=== PATIENT | female | born 1955 | race African-American/Black ===

== ENCOUNTER 2018-03-27 19:21 | Emergency (ER) | payer MEDICARE, OTHER ==
[2018-03-27] MEDS: HYDROCODONE/APAP (5/325) TAB PO (21:13)
== END 2018-03-27 23:22 | disposition home or self-care (01) ==
LOC: FTE 19:21
DX: S96.912A Strain of unspecified muscle and tendon at ankle and foot level, left foot, initial encounter (principal); S93.402A Sprain of unspecified ligament of left ankle, initial encounter; I10 Essential (primary) hypertension; J45.909 Unspecified asthma, uncomplicated; F17.210 Nicotine dependence, cigarettes, uncomplicated; R40.2412 Glasgow coma scale score 13-15, at arrival to emergency department; X58.XXXA Exposure to other specified factors, initial encounter; Y92.34 Swimming pool (public) as the place of occurrence of the external cause; Z79.82 Long term (current) use of aspirin
CPT/HCPCS: 73610; 73630-LT; 99283-25

== ENCOUNTER 2019-03-19 14:45 | Emergency (ER) | payer MEDICARE, OTHER ==
[2019-03-19] MEDS: KETOROLAC 30 MG INJ IM (15:10)
== END 2019-03-19 17:44 | disposition home or self-care (01) ==
LOC: FTE 17:44
DX: S92.534A Nondisplaced fracture of distal phalanx of right lesser toe(s), initial encounter for closed fracture (principal); J45.909 Unspecified asthma, uncomplicated; I10 Essential (primary) hypertension; W22.8XXA Striking against or struck by other objects, initial encounter; Y92.9 Unspecified place or not applicable; Z79.82 Long term (current) use of aspirin; Z87.891 Personal history of nicotine dependence
CPT/HCPCS: 73630; 96372; 99284-25